=== PATIENT | female | born 1995 | race Caucasian/White ===

== ENCOUNTER 2018-07-12 05:52 | Inpatient (IN) | payer OTHER ==
[2018-07-12] MEDS ORDERED: BUTORPHANOL 1 MG/ML INJ IV PRN (06:34)
[2018-07-12] MEDS ORDERED: METHYLERGONOVINE 0.2MG/ML AMP IM PRN (06:34)
[2018-07-12] MEDS ORDERED: MEPERIDINE HCL 25 MG/0.5 ML IV PRN (06:34)
[2018-07-12] MEDS ORDERED: Ringers Lactate 1,000 ML IV PRN (06:34)
[2018-07-12] MEDS ORDERED: CARBOPROST TROME 250 MCG/ML IM PRN (06:34)
[2018-07-12] MEDS ORDERED: PROMETHAZINE 25 MG/ML VIAL IM PRN (06:34)
[2018-07-12] MEDS ORDERED: MIDAZOLAM HCL 2 MG/2 ML INJ IV PRN (06:34)
[2018-07-12 06:59] LABS: RPR Titer ND
[2018-07-12] MEDS ORDERED: OXYTOCIN/LR 20 UNIT/1,000 ML BAG IV SCH ×2 (07:00→11:00)
[2018-07-12] MEDS ORDERED: Ringers Lactate 1,000 ML IV SCH (07:00)
[2018-07-12 07:52] LABS: Absolute Lymphocytes (CBC) 3.7 K/uL (0.7-4.9); Absolute Monocytes 0.9 K/uL (0.1-1.3); Absolute Neutrophil 6.9 K/uL (1.8-8.0); Basophils % 0.3 % (0-1.3); Eosinophils % 1.4 % (0-4.4); Hematocrit 29.1 % (36.0-45.0); Lymphocytes % 31.7 % (15.3-44.8); MCV 73.3 fL (80-100); MPV 7.9 fL (7.6-11.3); Monocytes % 7.7 % (3.3-12.3); RBC Red Blood Cell Count 3.97 M/uL (3.86-4.86)
[2018-07-12 08:48] VITALS: BMI 34.3
[2018-07-12] MEDS ORDERED: LIDOCAINE 2% 20 ML MDV SQ ONE (08:50)
[2018-07-12] MEDS ORDERED: Oxycodone HCl/Acetaminophen 1 TAB TAB PO PRN ×2 (10:13)
[2018-07-12] MEDS ORDERED: DOCUSATE NA/SENNA CONC 1 TAB PO PRN (10:13)
[2018-07-12] MEDS ORDERED: BISACODYL 10 MG RECTAL SUPP RECT PRN (10:13)
[2018-07-12] MEDS ORDERED: ACETAMINOPHEN 500 MG TAB PO PRN (10:13)
[2018-07-12] MEDS ORDERED: IBUPROFEN 200 MG TAB PO PRN (10:13)
[2018-07-12] MEDS ORDERED: DIPHENHYDRAMINE 25 MG TAB/CAP PO PRN (10:13)
--- NOTE | 2018-07-12 11:58 | PREOPHP ---
Date of Admission: 07/12/2018 A 23-year-old 2, para 1, 39 weeks 6 days, came in an active labor, 3-4 cm on admission, it is now 5-6, 100% effaced, 0 station. Paul regularly. FHTs normal reactive. She is requesting IV medications. Anticipate rather rapid progress. Beta strep negative. JAYDON/GLADIS Voice ID: [id number]
[2018-07-12] MEDS ORDERED: Ringers Lactate 1,000 ML IV ONE (12:01)
--- NOTE | 2018-07-12 12:43 | OP ---
Surgeon: Irving Chauhan MD Hospital Course: A 23-year-old 2, para 1, 39 weeks 6 days, came in active labor. Had Stadol IV, Phenergan IM during the labor, otherwise used Lamaze breathing techniques to best advantage. Ap parently she had spontaneous rupture of membranes, clear fluid, after achieving complete second stage of about 20 minutes or less. Spontaneous vaginal delivery of an estimated 9 pounds male , Apg ars 9 and 9. No episiotomy. No laceration. Schultze delivery of the placenta was inspected and not ed to be intact and normal. Mild uterine hypotonus, 0.2 mg of Methergine IM. Estimated blood loss 4 00-450 cc. The patient tolerated all procedures well. Rh positive, immune to Rubella. Negative bet a-strep screen. Final Diagnoses: Term intrauterine 39 weeks 6 days, vaginal delivery, mild uterine hypoton us. JAYDON/GLADIS Voice ID: [id number] Report ID: [id number]
--- NOTE | 2018-07-12 13:52 | PN ---
She is now feeling slightly more pressure. She is 8.5 cm, still cervix on the right side, 0 to +1 st ation. Baby looks good. The patient is doing quite well, going naturally. Anticipate delivery rela tively soon. JAYDON/GLADIS Voice ID: [id number] Report ID: [id number]
[2018-07-12 22:20] LABS: RPR (Rapid Plasma Reagin) NON-REACT (NON-REACT)
[2018-07-13 08:55] VITALS: BP 119/72; TEMP 97.8
--- NOTE | 2018-07-14 03:54 | DS ---
Date of Discharge: 07/13/2018 Hospital Course: This is a 23-year-old, 2, para 1, at 39 weeks 6 days, came in active labor. Subsequently delivered a 9 pound 3 ounce male . Short second stage. Apgars 9 and 9. No epi siotomy. No laceration. Schultze delivery of the placenta, inspected and noted to be intact. Mild uterine hypotonus. 450 cc blood loss. 0.2 mg of Methergine IM. Resulted in good uterine contractio n. Rh positive, immune to Rubella, negative beta strep screen. ; afebrile, ambulating, vo iding, lochia is normal. Will be dismissed later today. To report back to my office in 6 weeks for followup. To report any temperature elevation of 100 degrees or greater, severe pain, heavy bleeding , or any other type of abnormality. Dismissed with tramadol for analgesia, although she may elect to take the Motrin instead. Tdap has been offered on numerous occasions. Final Diagnoses: Intrauterine gestation, 39 weeks 6 days, vaginal delivery, mild uterine hypotonus. JAYDON/GLADIS Voice ID: [id number] Report ID: [id number]
[2018-07-14 19:03] LABS: HBsAG Nonreactive (Nonreactive)
== END 2018-07-13 13:10 | disposition home or self-care (01) | DRG 775 ==
LOC: L&D 05:52 → 2ND-WC 06:13
PROVIDERS: ADMIT Specialist; ATTEND Specialist
PROC: 10E0XZZ Delivery of Products of Conception, External Approach (ICD-10-PCS; principal; 2018-07-12)
DX: O62.2 Other uterine inertia (principal); Z3A.39 39 weeks gestation of pregnancy; Z37.0 Single live birth
CPT/HCPCS: 36415; 85025; 86592; 86850; 86900; 86901; 87340; J0595; J2210; J2550; J2590

== ENCOUNTER 2021-01-25 12:11 | Emergency (ER) | payer OTHER ==
[2021-01-25 13:52] LABS: Urine Blood Negative (Negative); Urine Glucose Negative (Negative); Urine Protein Negative (Negative); Urine Specific Gravity 1.025 (1.005-1.030)
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
--- NOTE | 2021-01-25 14:21 | RAD REPORT ---
EXAM DESCRIPTION: RAD - Shoulder Right 2 View - 01/25/2021 1:57 pm CLINICAL HISTORY: Right shoulder pain FINDINGS: No fracture or dislocation is seen.
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
[2021-01-25 18:51] VITALS: BP 112/83; TEMP 98.6; O2SAT 100
[2021-01-25 20:12] LABS: Urine Specific Gravity/Preg 1.025 (1.005-1.030)
== END 2021-01-25 15:04 | disposition home or self-care (01) ==
LOC: ER 12:11
DX: M54.2 Cervicalgia (principal); M54.5 Low back pain; M25.561 Pain in right knee; M25.511 Pain in right shoulder; V89.2XXA Person injured in unspecified motor-vehicle accident, traffic, initial encounter
CPT/HCPCS: 72125; 72128; 72131; 81003; 81025; 99283